=== PATIENT | male | born 1965 | race Caucasian/White ===

== ENCOUNTER 2023-09-17 17:18 | Inpatient (IN) | payer OTHER ==
[~2023-09-17] VITALS: Ht 175.3 cm; Wt 98.1 kg
[2023-09-17 17:47] VITALS: BP 125/77; PULSE 130; RESP 20; TEMP 98.7; O2SAT 98
[2023-09-17 17:54] LABS: BASOPHILS % (AUTO) 0.4 % (0.0-2.0); EOSINOPHILS # (AUTO) 0.3 K/uL (0-0.4); EOSINOPHILS % (AUTO) 3.4 % (0.0-4.0); HEMATOCRIT 43.9 % (36-52); HEMOGLOBIN 14.1 g/dL (12.0-18.0); LYMPHOCYTES # (AUTO) 2.3 K/uL (2.0-11.5); MEAN CORPUSCULAR HEMOGLOBIN 28 pg (27-31); MEAN CORPUSCULAR HGB CONC 32 g/dL (33-37); MEAN CORPUSCULAR VOLUME 86.3 fL (80-94); MONOCYTES % (AUTO) 12.5 % (1.7-9.3); NEUTROPHILS # (AUTO) 4.4 K/uL (1.8-7.7); NEUTROPHILS % (AUTO) 54.7 % (42.2-75.2); PLATELET COUNT (AUTO) 250 K/uL (140-450); RED BLOOD CELL COUNT(AUTO) 5.08 MIL/uL (4.20-6.10); RED CELL DISTRIBUTION WIDTH 14.9 % (11.6-13.7); WHITE BLOOD COUNT (AUTO) 8.1 K/uL (4.8-10.8)
[2023-09-17 18:12] LABS: ALBUMIN 3.3 g/dL (3.4-5.0); ANION GAP 17.3 (8-16); CALCIUM 9.4 mg/dL (8.5-10.1); CREATININE 1.2 mg/dL (0.6-1.3); POTASSIUM 4.3 mmol/L (3.5-5.1); TOTAL BILIRUBIN 0.2 mg/dL (0.0-1.0); TOTAL PROTEIN, SERUM 7.3 g/dL (6.4-8.2)
[2023-09-17] MEDS: NACL 0.9% 1,000 ML IV ONE (18:13)
[2023-09-17] MEDS ORDERED: LORazepam 1 MG TAB PO PRN (21:40)
[2023-09-17] MEDS ORDERED: NITROGLYCERIN 0.4 MG TAB SL PRN (21:40)
[2023-09-17] MEDS ORDERED: MORPHINE SULFATE 2 MG/ML SYR IVP PRN ×2 (21:40)
[2023-09-17] MEDS ORDERED: LISI10TA30 PO (21:46)
[2023-09-17] MEDS ORDERED: ATOR10TA51 PO (21:46)
[2023-09-17] MEDS ORDERED: LEVO0.1T19 PO (21:46)
[2023-09-17] MEDS ORDERED: DEXTROSE 50% 50 ML SYR IVP PRN (21:50)
[2023-09-17 22:18] LABS: AMYLASE 56 U/L (25-115); LIPASE 27 U/L (16-77)
[2023-09-17 22:20] LABS: INR 1.01 (0.8-1.2); PARTIAL THROMBOPLASTIN TIME 28.1 secs (22-35.6); PROTHROMBIN TIME 10.6 secs (10.8-13.4)
[2023-09-17] MEDS ORDERED: QUET50TA15 PO (23:47)
[2023-09-17] MEDS ORDERED: GABA100C PO (23:47)
[2023-09-17] MEDS ORDERED: METF-346 PO (23:47)
[2023-09-17] MEDS ORDERED: EMPA25TA PO (23:47)
[2023-09-17] MEDS ORDERED: LEVO112C2 PO (23:47)
[2023-09-17] MEDS ORDERED: DIVA-58 PO (23:47)
[2023-09-17] MEDS ORDERED: BUPR-160 PO (23:47)
[2023-09-17] MEDS ORDERED: ATOR10TA PO (23:47)
[2023-09-18] VITALS (7 sets, daily range): BP systolic 108–122; BP diastolic 80–94; PULSE 132–139; RESP 18; TEMP 97–97.8; O2SAT 95–99
[2023-09-18] MEDS: SODIUM CHLORIDE FLUSH 10 ML SYR IVF SCH (05:00)
[2023-09-18 06:23] LABS: BASOPHILS # (AUTO) 0.1 K/uL (0.00-0.22); BASOPHILS % (AUTO) 1.8 % (0.0-2.0); EOSINOPHILS # (AUTO) 0.3 K/uL (0-0.4); HEMATOCRIT 40.7 % (36-52); HEMOGLOBIN 13.4 g/dL (12.0-18.0); LYMPHOCYTES # (AUTO) 1.6 K/uL (2.0-11.5); LYMPHOCYTES % (AUTO) 24.7 % (20.5-51.1); MEAN CORPUSCULAR HEMOGLOBIN 28 pg (27-31); MEAN CORPUSCULAR HGB CONC 33 g/dL (33-37); MEAN CORPUSCULAR VOLUME 85.7 fL (80-94); MONOCYTES # (AUTO) 0.8 K/uL (0.8-1.0); MONOCYTES % (AUTO) 11.7 % (1.7-9.3); NEUTROPHILS # (AUTO) 3.7 K/uL (1.8-7.7); NEUTROPHILS % (AUTO) 57.8 % (42.2-75.2); PLATELET COUNT (AUTO) 214 K/uL (140-450); RED BLOOD CELL COUNT(AUTO) 4.75 MIL/uL (4.20-6.10); RED CELL DISTRIBUTION WIDTH 14.2 % (11.6-13.7); WHITE BLOOD COUNT (AUTO) 6.5 K/uL (4.8-10.8)
[2023-09-18 06:39] LABS: CHOL/HDL RATIO 3.5 (1-4.5); MAGNESIUM 1.7 mg/dL (1.8-2.4)
[2023-09-18 06:48] LABS: ANION GAP 10.8 (8-16); CALCIUM 8.9 mg/dL (8.5-10.1); CARBON DIOXIDE 29.4 mmol/L (21-32); CREATININE 0.9 mg/dL (0.6-1.3); POTASSIUM 4.2 mmol/L (3.5-5.1)
[2023-09-18] MEDS: BLOOD GLUCOSE MONITORING 1 DEV DEV FS SCH (07:14)
[2023-09-18 10:34] LABS: AMPHETAMINE, URINE NEGATIVE ng/ml (NEG <=1000); BARBITURATE, URINE NEGATIVE ng/ml (NEG <=200); BENZODIAZEPINE, URINE NEGATIVE ng/mL (NEG <=200); CANNABINOID, URINE NEGATIVE ng/mL (NEG <=50); COCAINE, URINE NEGATIVE ng/mL (NEG <=300); OPIATE, URINE NEGATIVE ng/mL (NEG <=2000); PHENCYCLIDINE SCREEN,URINE NEGATIVE ng/mL (NEG <=25)
[2023-09-18] MEDS: CRUSHER, PILL MC ONE (11:30)
[2023-09-18] MEDS: DIGOXIN 0.25 MG/ML AMP IV SCH ×2 (12:06→16:14)
[2023-09-18] MEDS: INSULIN LISPRO SLIDING SCALE 100 UNITS/ML VIAL SUBQ PRN (12:08)
[2023-09-18] MEDS: MAG SULF 2000 MG/WATER PREMIX 50 ML IV SCH (12:08)
[2023-09-18] MEDS: GABAPENTIN 100 MG CAP PO SCH (13:13)
[2023-09-18] MEDS: metFORMIN 500 MG TAB PO SCH (16:58)
[2023-09-18] MEDS: buPROPion 150 MG TABER PO SCH (20:37)
[2023-09-18] MEDS: DIVALPROEX 500 MG TABEC PO SCH (20:38)
[2023-09-18] MEDS: DILTIAZEM 25 MG/5 ML VIAL IVP PRN ×2 (20:39→22:37)
[2023-09-18] MEDS: ATORVASTATIN 20 MG TAB PO SCH (20:41)
[2023-09-18] MEDS: QUEtiapine FUMARATE 25 MG TAB PO SCH (21:00)
[2023-09-18] MEDS ORDERED: NON-FORMULARY ITEM (Bupropion HCl* (Wellbutrin Xl*) 150 MG) PO SCH (21:00)
[2023-09-18] MEDS ORDERED: NON-FORMULARY ITEM (Quetiapine Fumarate 50 MG) PO SCH (21:00)
[2023-09-18] MEDS: MEDS-TO-BEDS MC SCH (21:00)
[2023-09-19] VITALS (15 sets, daily range): BP systolic 80–121; BP diastolic 53–83; PULSE 70–143; RESP 12–22; TEMP 95.9–98.7; O2SAT 93–99
[2023-09-19 07:17] LABS: BASOPHILS % (AUTO) 0.6 % (0.0-2.0); EOSINOPHILS # (AUTO) 0.3 K/uL (0-0.4); EOSINOPHILS % (AUTO) 4.5 % (0.0-4.0); HEMATOCRIT 43.9 % (36-52); HEMOGLOBIN 14.5 g/dL (12.0-18.0); LYMPHOCYTES # (AUTO) 1.8 K/uL (2.0-11.5); LYMPHOCYTES % (AUTO) 25.5 % (20.5-51.1); MEAN CORPUSCULAR HEMOGLOBIN 28 pg (27-31); MEAN CORPUSCULAR HGB CONC 33 g/dL (33-37); MEAN CORPUSCULAR VOLUME 85.5 fL (80-94); MONOCYTES # (AUTO) 0.9 K/uL (0.8-1.0); MONOCYTES % (AUTO) 12.3 % (1.7-9.3); NEUTROPHILS % (AUTO) 57.1 % (42.2-75.2); PLATELET COUNT (AUTO) 227 K/uL (140-450); RED BLOOD CELL COUNT(AUTO) 5.14 MIL/uL (4.20-6.10); RED CELL DISTRIBUTION WIDTH 14.1 % (11.6-13.7); WHITE BLOOD COUNT (AUTO) 6.9 K/uL (4.8-10.8)
[2023-09-19] MEDS: LEVOTHYROXINE 0.112 MG TAB PO SCH (07:24)
[2023-09-19 07:25] LABS: ANION GAP 11.7 (8-16); CALCIUM 9.3 mg/dL (8.5-10.1); CARBON DIOXIDE 30.6 mmol/L (21-32); POTASSIUM 4.3 mmol/L (3.5-5.1)
[2023-09-19] MEDS ORDERED: EMPAGLIFLOZIN 25 MG PO SCH (09:00)
[2023-09-19] MEDS ORDERED: LEVOTHYROXINE SODIUM 112 MCG PO SCH (09:00)
[2023-09-19] MEDS: lisinopriL 10 MG TAB PO SCH (09:20)
[2023-09-19] MEDS: DIGOXIN 0.125 MG TAB PO SCH (09:21)
[2023-09-19] MEDS ORDERED: APIXABAN 2.5 MG TAB PO ONE (10:09)
[2023-09-19] MEDS: AMIODARONE 150 MG in DEXTROSE 5% 100 ML IV SCH (12:21)
[2023-09-19] MEDS: AMIODARONE 450 MG in DEXTROSE 5% 250 ML IV SCH (13:04)
[2023-09-19] MEDS: APIXABAN 2.5 MG TAB PO SCH (13:22)
[2023-09-19] MEDS: ACETAMINOPHEN 325 MG TAB PO PRN (18:42)
[2023-09-20] VITALS (25 sets, daily range): BP systolic 80–127; BP diastolic 50–86; PULSE 100–138; RESP 12–23; TEMP 97.7–98.4; O2SAT 94–99
[2023-09-20 05:42] LABS: BASOPHILS # (AUTO) 0.1 K/uL (0.00-0.22); BASOPHILS % (AUTO) 0.6 % (0.0-2.0); EOSINOPHILS # (AUTO) 0.3 K/uL (0-0.4); EOSINOPHILS % (AUTO) 3.5 % (0.0-4.0); HEMOGLOBIN 14.5 g/dL (12.0-18.0); LYMPHOCYTES % (AUTO) 23.6 % (20.5-51.1); MEAN CORPUSCULAR HEMOGLOBIN 28 pg (27-31); MEAN CORPUSCULAR HGB CONC 33 g/dL (33-37); MEAN CORPUSCULAR VOLUME 86.4 fL (80-94); MONOCYTES # (AUTO) 1.1 K/uL (0.8-1.0); MONOCYTES % (AUTO) 12.4 % (1.7-9.3); NEUTROPHILS # (AUTO) 5.1 K/uL (1.8-7.7); NEUTROPHILS % (AUTO) 59.9 % (42.2-75.2); PLATELET COUNT (AUTO) 212 K/uL (140-450); RED CELL DISTRIBUTION WIDTH 14.5 % (11.6-13.7); WHITE BLOOD COUNT (AUTO) 8.5 K/uL (4.8-10.8)
[2023-09-20 06:01] LABS: ANION GAP 11.1 (8-16); CALCIUM 9.2 mg/dL (8.5-10.1); POTASSIUM 4.1 mmol/L (3.5-5.1)
[2023-09-20] MEDS: DILTIAZEM 60 MG TAB PO SCH (20:38)
[2023-09-20] MEDS: ZOLPIDEM 5 MG TAB PO PRN (22:06)
[2023-09-21] VITALS (24 sets, daily range): BP systolic 88–119; BP diastolic 48–79; PULSE 75–139; RESP 13–23; TEMP 97.1–98.4; O2SAT 94–98
[2023-09-21] MEDS: NACL 0.9% 500 ML IV ONE (02:43)
[2023-09-21 06:51] LABS: ANION GAP 11.6 (8-16); CARBON DIOXIDE 31.6 mmol/L (21-32); POTASSIUM 4.2 mmol/L (3.5-5.1)
[2023-09-21 07:14] LABS: BASOPHILS # (AUTO) 0.1 K/uL (0.00-0.22); BASOPHILS % (AUTO) 0.6 % (0.0-2.0); EOSINOPHILS # (AUTO) 0.3 K/uL (0-0.4); EOSINOPHILS % (AUTO) 3.4 % (0.0-4.0); HEMATOCRIT 41.5 % (36-52); HEMOGLOBIN 13.6 g/dL (12.0-18.0); LYMPHOCYTES # (AUTO) 1.8 K/uL (2.0-11.5); LYMPHOCYTES % (AUTO) 21.7 % (20.5-51.1); MEAN CORPUSCULAR HEMOGLOBIN 28 pg (27-31); MEAN CORPUSCULAR HGB CONC 33 g/dL (33-37); MEAN CORPUSCULAR VOLUME 86.3 fL (80-94); MONOCYTES # (AUTO) 1.1 K/uL (0.8-1.0); MONOCYTES % (AUTO) 13.1 % (1.7-9.3); NEUTROPHILS # (AUTO) 5.2 K/uL (1.8-7.7); NEUTROPHILS % (AUTO) 61.2 % (42.2-75.2); PLATELET COUNT (AUTO) 220 K/uL (140-450); RED BLOOD CELL COUNT(AUTO) 4.81 MIL/uL (4.20-6.10); RED CELL DISTRIBUTION WIDTH 14.1 % (11.6-13.7); WHITE BLOOD COUNT (AUTO) 8.5 K/uL (4.8-10.8)
[2023-09-21] MEDS ORDERED: DILTIAZEM 60 MG TAB PO SCH (13:55)
[2023-09-21] MEDS: DILTIAZEM 60 MG TAB PO SCH (16:56)
[2023-09-22] VITALS (18 sets, daily range): BP systolic 96–133; BP diastolic 55–93; PULSE 61–137; RESP 12–19; TEMP 97.1–98; O2SAT 94–98
[2023-09-22 05:54] LABS: BASOPHILS % (AUTO) 0.4 % (0.0-2.0); EOSINOPHILS # (AUTO) 0.3 K/uL (0-0.4); EOSINOPHILS % (AUTO) 4.5 % (0.0-4.0); HEMATOCRIT 40.1 % (36-52); HEMOGLOBIN 13.2 g/dL (12.0-18.0); LYMPHOCYTES # (AUTO) 2.1 K/uL (2.0-11.5); LYMPHOCYTES % (AUTO) 28.4 % (20.5-51.1); MEAN CORPUSCULAR HEMOGLOBIN 28 pg (27-31); MEAN CORPUSCULAR HGB CONC 33 g/dL (33-37); NEUTROPHILS # (AUTO) 3.9 K/uL (1.8-7.7); NEUTROPHILS % (AUTO) 52.7 % (42.2-75.2); PLATELET COUNT (AUTO) 209 K/uL (140-450); RED BLOOD CELL COUNT(AUTO) 4.66 MIL/uL (4.20-6.10); RED CELL DISTRIBUTION WIDTH 14.3 % (11.6-13.7); WHITE BLOOD COUNT (AUTO) 7.5 K/uL (4.8-10.8)
[2023-09-22 06:30] LABS: ANION GAP 10.5 (8-16); CARBON DIOXIDE 28.5 mmol/L (21-32); CREATININE 0.8 mg/dL (0.6-1.3)
[2023-09-22] MEDS: MIDAZOLAM 5 MG/5 ML VIAL IV ONE (10:01)
[2023-09-22] MEDS: fentaNYL citrate 0.05 MG/ML VIAL ONE (10:20)
[2023-09-22] MEDS: MIDAZOLAM 2 MG/2 ML VIAL ONE (10:21)
[2023-09-22] MEDS: METOPROLOL 25 MG TAB ONE (10:28)
[2023-09-22] MEDS: METOPROLOL 25 MG TAB PO SCH (10:29)
[2023-09-22] MEDS: fentaNYL citrate 0.05 MG/ML VIAL IVP ONE (10:30)
[2023-09-22] MEDS ORDERED: APIX2.5 PO ×2 (11:05→12:10)
[2023-09-22] MEDS ORDERED: METO25TA PO ×2 (11:05→12:10)
[2023-09-22] MEDS ORDERED: METOPROLOL 25 MG TAB PO SCH (21:00)
[2023-10-11] MEDS ORDERED: METO50TA99 PO (13:29)
== END 2023-09-22 16:58 | disposition home or self-care (01) | DRG 201 ==
LOC: MED 17:18 → MTU 21:43 → OBSVTOIN 21:43 → MTU 22:47 → MIC 09-19 11:10
PROVIDERS: ADMIT Hospitalist; ATTEND Hospitalist
PROC: 5A2204Z Restoration of Cardiac Rhythm, Single (ICD-10-PCS; principal; 2023-09-22)
DX: I48.91 Unspecified atrial fibrillation (principal); J96.01 Acute respiratory failure with hypoxia; E44.1 Mild protein-calorie malnutrition; I50.9 Heart failure, unspecified; I11.0 Hypertensive heart disease with heart failure; I48.92 Unspecified atrial flutter; E87.20 Acidosis, unspecified; F31.9 Bipolar disorder, unspecified; E03.9 Hypothyroidism, unspecified; E78.5 Hyperlipidemia, unspecified; Z79.01 Long term (current) use of anticoagulants; Z79.899 Other long term (current) drug therapy; Z68.31 Body mass index [BMI] 31.0-31.9, adult; E11.9 Type 2 diabetes mellitus without complications
CPT/HCPCS: 36415; 71045; 71275; 80048; 80053; 80305; 82150; 82948; 83690; 83735; 83880; 84439; 84443; 84484; 85025; 85610; 85730; 87081; 93005; 96360; 99291; J0282; J1160; J1815; J2250; J3010; J3475; J3490; J7060; Q9967